=== PATIENT | female | born 1995 | race Hispanic/Latino ===

== ENCOUNTER 2021-04-02 09:44 | Emergency (ER) | payer OTHER ==
[~2021-04-02] VITALS: Ht 170.2 cm; Wt 95.3 kg
[2021-04-02] MEDS ORDERED: CEPHALEXIN500 MG PO (10:35)
== END 2021-04-02 10:45 | disposition home or self-care (01) ==
LOC: FSED 10:10
DX: O20.0 Threatened abortion (principal); O23.41 Unspecified infection of urinary tract in pregnancy, first trimester
CPT/HCPCS: 99284